=== PATIENT | female | born 1975 | race Two or more races ===

== ENCOUNTER 2021-08-12 07:21 | Inpatient (IN) | payer OTHER ==
[~2021-08-12] VITALS: Ht 160 cm; Wt 68.0 kg
[~2021-08-12 07:21] MED LIST: NORVASC2.5 MG PO
== END 2021-08-13 11:46 | disposition home or self-care (01) | DRG 743 ==
LOC: CIR.AMB 07:21 → OB/GYN 16:39
PROVIDERS: ADMIT Specialist; ATTEND Specialist
PROC: 0UT04ZZ Resection of Right Ovary, Percutaneous Endoscopic Approach (ICD-10-PCS; 2021-08-12)
PROC: 0DNW4ZZ Release Peritoneum, Percutaneous Endoscopic Approach (ICD-10-PCS; 2021-08-12)
PROC: 0U5B4ZZ Destruction of Endometrium, Percutaneous Endoscopic Approach (ICD-10-PCS; 2021-08-12)
PROC: 0UDB8ZZ Extraction of Endometrium, Via Natural or Artificial Opening Endoscopic (ICD-10-PCS; 2021-08-12)
PROC: 0UT74ZZ Resection of Bilateral Fallopian Tubes, Percutaneous Endoscopic Approach (ICD-10-PCS; principal; 2021-08-12 09:00)
DX: N83.291 Other ovarian cyst, right side (principal); N80.3 Endometriosis of pelvic peritoneum; N73.6 Female pelvic peritoneal adhesions (postinfective); Z20.822 Contact with and (suspected) exposure to COVID-19